=== PATIENT | male | born 1960 | race Caucasian/White ===

== ENCOUNTER 2022-09-26 10:00 | Emergency (ER) | payer MEDICAID ==
[~2022-09-26] VITALS: Ht 180.3 cm; Wt 86.4 kg
[2022-09-26 12:20] VITALS: BP 189/116
== END 2022-09-26 13:48 | disposition left against medical advice (07) ==
LOC: ER 10:00
DX: M54.41 Lumbago with sciatica, right side (principal); M79.604 Pain in right leg; Z98.890 Other specified postprocedural states
CPT/HCPCS: 72100; 99283

== ENCOUNTER 2025-05-18 13:47 | Day surgery (SDC) | payer MEDICAID ==
--- NOTE | 2025-05-11 15:05 | ELECTROCARDIOGRAPH REPORT ---
[facility] Test Date: 2025-05-11 Test Time: 15:03:27 Pat Name: VALENCIA HAMPTON Department: [facility]-PRE-OP Patient ID: [id number] Room: Gender: M [employer]: : 1960 Requested By: ANA LAURA AMCIAS Order Number: [id number] Reading MD: Dr. SIENA Muñoz Measurements Intervals Schwertner Rate: 82 P: 73 IN: 143 QRS: 52 QRSD: 95 T: 76 QT: 377 QTc: 441 Interpretive Statements Sinus rhythm Abnormal R-wave progression, early transition ST elevation, consider inferior injury Electronically Signed On 05-12-2025 19:47:[address] SIENA Muñoz Please click the below link to view image of tracing.
[2025-05-11 15:13] LABS: MEAN PLATELET VOLUME 7.1 FL (7.4-10.4); PRE OP HEMATOCRIT 43.8 % (42.0-52.0); PRE OP HEMOGLOBIN 15.3 g/dL (14.0-17.9); PRE OP PLATELET COUNT 351 X10'3 (140-440); PRE OP WHITE BLOOD COUNT 7.8 10'3 (4.8-10.8); RED CELL DISTRIBUTION WIDTH 12.8 % (11.5-14.5)
[2025-05-11 15:25] LABS: CREATININE 0.92 MG/DL (0.60-1.10); PRE OP ALT 24 U/L (30-65); PRE OP ANION GAP 7 (8-16); PRE OP AST 19 U/L (10-37); PRE OP BILIRUB, TOTAL 0.2 MG/DL (0.0-1.0); PRE OP GLUCOSE 96 MG/DL (70-104); PRE OP POTASSIUM 4.0 MMOL/L (3.4-5.1); PRE OP SODIUM 138 MMOL/L (135-145); TOTAL CARBON DIOXIDE 27.2 MMOL/L (24-32); eGFR 83 ML/MIN
[~2025-05-18] VITALS: Ht 177.8 cm; Wt 75.5 kg
[2025-05-18] VITALS (10 sets, daily range): BP systolic 99–144; BP diastolic 52–83; PULSE 72–93; RESP 14–26; TEMP 97.8; O2SAT 92–97
[2025-05-18] MEDS: ceFAZolin 2gm/dext,iso 50mL 50 ML IV ONE (05:30)
[~2025-05-18 13:47] MED LIST: NO HOME MEDS
[2025-05-18] MEDS ORDERED: BUPIVAcaine/PF 2.5mg/ml (0.25%) 10ml vial ONE (13:59)
[2025-05-18] MEDS ORDERED: LIDOcaine 1% 30ml preserv. free vial ONE (14:00)
[2025-05-18] MEDS ORDERED: BUPIVAcaine 2.5mg/ml inj 50ml vial (contains preservative) ONE ×2 (14:03→15:10)
[2025-05-18] MEDS: ringers solution, lacted 1,000 ML IV SCH (14:39)
[2025-05-18] MEDS ORDERED: LIDOcaine 1% (10mg/ml)w/preservative inj. 20ml MDV ONE (15:10)
[2025-05-18] MEDS ORDERED: midazolam 1 mg/ML 2ml injection ONE (15:50)
[2025-05-18] MEDS ORDERED: propofol inj 20 ML IV ONE (16:09)
[2025-05-18] MEDS ORDERED: LIDOcaine 2% (20mg/ml) 5ml vial ONE (16:09)
[2025-05-18] MEDS ORDERED: fentaNYL /PF 50mcg/ml 5ml ampule ONE (16:09)
[2025-05-18] MEDS ORDERED: rocuronium 10mg/ml inj IV ONE (16:09)
[2025-05-18] MEDS ORDERED: dexamethasone sod phosphate 4mg/ml inj. ONE (16:10)
[2025-05-18] MEDS ORDERED: ondansetron/PF 4mg/2ml inj ONE (16:10)
[2025-05-18] MEDS ORDERED: labetalol 20mg/4ml (5mg/ml) syringe IV PRN (16:20)
[2025-05-18] MEDS ORDERED: hydrALAZINE 20mg/ml inj. IV PRN (16:20)
[2025-05-18] MEDS ORDERED: ringers solution, lacted 1,000 ML IV SCH (16:20)
[2025-05-18] MEDS ORDERED: HYDROmorphone/PF 0.2 MG/ML SYRINGE IV PRN (16:20)
[2025-05-18] MEDS ORDERED: ondansetron/PF 4mg/2ml inj IV PRN (16:20)
[2025-05-18] MEDS ORDERED: morphine 4 MG/ML inj SYRINge IV PRN (16:20)
[2025-05-18] MEDS ORDERED: glycopyrrolate 0.2mg/ml inj ONE (17:09)
--- NOTE | 2025-05-18 17:52 | OPERATIVE REPORT ---
Operative Report Providers to CC: JT MACIAS MD ~ Date of Procedure: May 18, 2025 Pre-Operative Diagnosis: Right inguinal hernia, incisional hernia Post-Operative Diagnosis Right inguinal hernia 2 cm incisional hernia Procedure Performed 2 cm, incarcerated incisional hernia repair Robotic assisted, laparoscopic right inguinal hernia repair with mesh Surgeon: Jt Macias MD FACS Historical Guide None Anesthesiologist: Anita Adams Type of Anesthesia: General Findings: 2 cm incisional hernia at the site of a previous PEG tube insertion and removal site Fairly large indirect right inguinal hernia Complications None Prosthetics\Implants used: Large right Dextile mesh Estimated Blood Loss: Minimal Specimen Removed: None Description of Procedure: Patient was brought to the operating room and identified by the nursing staff and the attending physician. Patient was placed supine and general anesthesia was induced. Patient's abdomen was prepped and draped in standard sterile fashion. Preoperative antibiotics were given. Supraumbilical incision was made to allow for standard Gutierrez entry technique. Laparoscope was inserted after insufflation. Bilateral, 8.5 mm robotic trochars were placed under laparoscopic guidance following administration of local anesthetic. I attempted to visualize the incisional hernia at the previous PEG tube site, however, due to significant adhesions involving the entire upper abdominal wall. The decision not to proceed with laparoscopic repair of the incisional hernia was made. Focus was then turned to the inguinal hernia on the right. The [employer] robotic arm was docked to the patient and instruments placed intra-abdominally under laparoscopic visualization. The left hemipelvis was examined and showed no evidence of left inguinal hernia. Preperitoneal flap was created and carried down to the symphysis pubis. The retropubic space of [place] was developed and the bladder swept medially. Dissection was carried out laterally until an indirect right inguinal hernia sac was identified. This was fairly large in size. Hernia sac was completely mobilized and reduced. Peritoneum was completely dissected away from the cord structures The critical view of the myopectineal orifice was achieved. Dissection was carried out laterally to allow space for mesh deployment. An extra- large right Dextile mesh and suture was passed intra-abdominally. Mesh was laid in the preperitoneal space covering both indirect, direct, and potential femoral and obturator hernias. Mesh laid without wrinkles or folds. 3 tacking sutures using 0 Ethibond were used to fix the mesh at the symphysis pubis, rectus abdominis, and just anterior to the anterior superior iliac spine. The peritoneal rent was then closed with running, 2/0, absorbable locking suture. [place] were retrieved. Abdomen was deflated and secondary trochars removed. Fascia at the umbilical port site was closed with 0 Vicryl sutures. Attention was turned to the left upper quadrant abdominal wall at a surgical scar with a palpable mass. This correlated with incisional hernia noted on exam. Elliptical incision was made excising the old broad-based scar. This was excised. Incision was deepened down through the subcutaneous tissue until a fairly large hernia sac was encountered. Hernia sac was opened and found to contain herniated omentum. This was mobilized away from the surrounding soft tissue and reduced through a 2 cm fascial defect. Fascial edges were freshened and then reapproximated with interrupted, [id number], 0 Ethibond sutures. Skin incisions were closed with 4-0 Monocryl sutures in a subcuticular fashion. Sterile dressings were applied. Patient was awakened and taken to the stanesthesia care unit in stable condition. Counts repoted as correct: Yes JT MACIAS MD May 18, 2025 17:52
[2025-05-18] MEDS: HYDROmorphone/PF 0.2 MG/ML SYRINGE IV PRN (17:55)
[2025-05-18] MEDS: HYDROcodone/acetaminophen 5mg/325mg tablet PO PRN (18:26)
[2025-05-18] MEDS: acetaminophen 1,000mg/100ml IV 100 ML IV PRN (18:36)
== END 2025-05-18 19:27 | disposition home or self-care (01) ==
LOC: PAS 13:47
PROVIDERS: ATTEND Surgery
DX: K43.0 Incisional hernia with obstruction, without gangrene (principal); K40.90 Unilateral inguinal hernia, without obstruction or gangrene, not specified as recurrent; R94.31 Abnormal electrocardiogram [ECG] [EKG]; F12.90 Cannabis use, unspecified, uncomplicated; Z98.890 Other specified postprocedural states
CPT/HCPCS: 36415; 49592; 49650; 80053; 82948; 85025; 93005; C1781; J0131; J1100; J1171; J2003; J2250; J2405; J2704; J2710; J3010; J3490; J7030; J7120; S2900; Z7506; Z7508; Z7512; A4215; A4618